=== PATIENT | female | born 1995 | race Hispanic/Latino ===

== ENCOUNTER 2016-04-21 19:00 | Emergency (ER) | payer OTHER ==
[~2016-04-21] VITALS: Ht 157.5 cm; Wt 59.5 kg
[~2016-04-21 19:00] MED LIST: FERR-83 PO; IBUP800T28 PO
[2016-04-21 19:07] VITALS: BP 136/84; PULSE 103; RESP 16; O2SAT 96
--- NOTE | 2016-04-21 20:32 | ED.REPORT ---
HPI-Dental/Mouth Prob Date of Service Apr 21, 2016 ED Provider: Martha Swanson Nursing Notes Stated Complaint: R SIDED DENTAL/FACIAL PAIN Chief Complaint: Dental Nursing Notes Reviewed: Yes Allergies: Coded Allergies: No Known Allergies (Unverified , 04/21/16) Scheduled Penicillin V Potassium (Penicillin V Potassium) 500 Mg Tablet 500 MG PO BID Scheduled PRN Hydrocodone-Acetaminophen 5-325 mg (Hydrocodone-Acetaminophen 5-325 mg) 1 Each Tablet 1 TABLET PO Q4H PRN PRN For Pain General Time Seen by MD: 20:13 Chief Complaint Gum swelling, Mouth pain Hx Obtained From: Patient Arrived By: Walk-in Onset Occurred: Yesterday Symptom Duration: Since onset Location: : Gum mandible right: Tooth lower R molar Quality: Aching Radiation: : Does not radiate Severity: Current: Mild Severity: Maximum: Moderate Associated with: Denies: Can't fully open mouth, Fever, Sore throat Pertinent Negative: Pt denies other symptoms Exacerbated by: Chewing Pertinent Negative: Relieved by nothing Recent Healthcare: No recent doctor visit Similar Sx Previous: No Review of Systems Basic Review of Systems Eyes: Vision NL, No discharge Cardiovascular: No chest pain, No dyspnea on exertion, No palpitations : No frequency Musculoskeletal: No extremity pain, Full range of motion, Joints NL Hematologic: No bleeding, No bruising Endocrine: No cold intolerance, No heat intolerance, No weight gain, No weight loss Skin: No bruising, No rash, No itch Allergy / Immune: No allergy Neurologic: NL mental status, No weakness, No numbness Psychiatric: Normal thought content Constitutional: Denies: Fatigue, Fever Ears / Nose / Throat: Reports: Mouth pain, Toothache, Denies: Earache bilateral, Throat pain Respiratory: Denies: Dyspnea on exertion GI: Denies: Abdominal pain Complete sys rev & neg: except as marked. Physical Exam Initial Vital Signs Vital Signs (First) Date Time Temp Pulse Resp B/P Pulse Ox O2 Delivery O2 Flow Rate FiO2 04/21/16 19:07 36.8 103 16 136/84 96 Room Air Initial VS: Reviewed General/Constitutional: Well-developed, Well-nourished Head / Eyes: Atraumatic, Normocephalic, PERRL Respiratory: No respiratory distress Abdomen / GI: No distention Lymphatic: No lymphadenopathy Extremities: Vascular intact, Neuro intact, No swelling, No tenderness Skin: Warm, Dry, No cyanosis Neurologic: Alert, Oriented, Nonfocal Psychiatric: Mood/affect normal, Behavior normal, Normal thought content ENT: Atraumatic, Airway patent, Mucous membranes moist, No trismus, Nose exam NL, No facial swelling Dental / Gums: Positive: Dental caries present, Gum tenderness, Tooth fracture (lower right first molar with extensive decay, no gum swelling), Negative: Dental abscess, Gum discoloration, Gum swelling Neck: Atraumatic, Supple, No meningismus Discharge & Departure Primary Impression: Dental abscess Additional Impression: Toothache Disposition: Home Discharge Condition Condition: Improved Patient Instructions: Dental Abscess (ED) Additional Instructions: Take your medications as prescribed. You should start to feel better in the next 3 to 5 days. It is important to find a dentist to work on your teeth or the abscess will come back. Please call all of the places on the resource sheet and see who can see you in the next 2 weeks. Return to Urgent Care or the ER if you feel that you are getting worse or any other problems. Referrals: NOPCP (PCP) EDSupervising Provider for APC: Mikel Valdez MD, Lora L ARNP Apr 21, 2016 20:32
[2016-04-21] MEDS ORDERED: HYDR-4003 PO (20:34)
[2016-04-21] MEDS ORDERED: PENI500T PO (20:34)
[2016-04-21] MEDS ORDERED: HYDROcodone-APAP 5-325 mg Tablet PO ONE (20:35)
== END 2016-04-21 21:01 | disposition home or self-care (01) ==
LOC: MERGE 19:00 → SED 19:00
DX: K04.7 Periapical abscess without sinus (principal)

== ENCOUNTER 2016-06-26 20:46 | Emergency (ER) | payer OTHER ==
[~2016-06-26] VITALS: Ht 154.9 cm; Wt 91.8 kg
[~2016-06-26 20:46] MED LIST changes: +HYDR-4003 PO; +PENI500T PO
[2016-06-26 20:50] VITALS: BP 144/82; PULSE 92; RESP 16; O2SAT 98
[2016-06-26 21:42] LABS: Mean Corpuscular Hemoglobin 27.6 pg (27.0-35.0); Mean Corpuscular Volume 87.6 fL (81-100)
--- NOTE | 2016-06-26 22:08 | ED.REPORT ---
HPI- Female Date of Service Jun 26, 2016 ED Provider: Laurent See MD 21 year old female who is currently presents to the ER referred from urgent care accompanied by her and children complaining of three days of cramping low abdominal pain and mild vaginal bleeding. Patient denies fever, dysuria, vaginal discharge, urinary urgency/frequency, nausea, and vomiting. Positive test at urgent care. Last menstrual period was at the end of May 2016. Nursing Notes Stated Complaint: AND BLEEDING SENT FROM Chief Complaint: Female Abdominal Pain Nursing Notes Reviewed: Yes Allergies: Coded Allergies: No Known Allergies (Verified Allergy, Unknown, 06/26/16) Scheduled Ferrous Sulfate (Ferrous Sulfate) 325 Mg Tablet 325 MG PO DAILY Penicillin V Potassium (Penicillin V Potassium) 500 Mg Tablet 500 MG PO BID Scheduled PRN Hydrocodone-Acetaminophen 5-325 mg (Hydrocodone-Acetaminophen 5-325 mg) 1 Each Tablet 1 TABLET PO Q4H PRN PRN For Pain Ibuprofen (Ibuprofen) 800 Mg Tablet 800 MG PO Q6H PRN PRN For Pain General Time Seen by MD: 22:07 Chief Complaint Abdominal pain..., Vaginal bleeding... (Moderate) Hx Obtained From: Patient Arrived By: Walk-in Sudden in Onset?: No Onset Occurred: 3 days ago Symptom Duration: Since onset Location: : Abdomen lower Quality: Cramping, Painful Severity: Current: Moderate Severity: Maximum: Moderate Status: Positive - home urine HCG : 3 Para: 2 Similar Sx Previous: No Past Medical History Past Medical History pre-eclampsia with first Past Surgical History none Smoking History Smoker Current Status UNK Social History Drug Use: Denies drug use Other Social History: Good social support, Ambulatory Status Independent Review of Systems Constitutional: Denies: Chills, Fever GI: Reports: Abdominal pain, Denies: Nausea, Vomiting Female: Reports: , Vaginal bleeding - abnl, Denies: Dysuria, Hematuria, Urinary frequency, Urinary urgency, Vaginal discharge Complete sys rev & neg: except as marked. Physical Exam Initial Vital Signs Vital Signs (First) Date Time Temp Pulse Resp B/P Pulse Ox O2 Delivery O2 Flow Rate FiO2 06/26/16 20:50 36.2 92 16 144/82 98 Room Air Initial VS: Reviewed General/Constitutional: Well-developed, Well-nourished Head / Eyes: Atraumatic, Normocephalic ENT: Mucous membranes moist, Conjunctiva normal, No scleral icterus Neck: Supple, Non-tender, Full range of motion Respiratory: Breath sounds normal, Clear to auscultation, No respiratory distress Cardiovascular: Regular rate & rhythm, Heart sounds normal, Intact distal pulses Abdomen / GI: Soft, Non-tender, No guarding, No rebound, No distention Extremities: Vascular intact, Neuro intact, No swelling, No tenderness Skin: Warm, Dry, No cyanosis Neurologic: Alert, Oriented, Nonfocal Psychiatric: Mood/affect normal, Behavior normal, Normal thought content Female Genitourinary: Exam deferred Interpretation & Diagnostics Lab Results Interpretation Result Diagram: 06/26/162126 Test 06/26/16 21:27 White Blood Count 11.4th/mm3 (3.8-10.1) Red Blood Count 4.27mil/mm3 (3.90-5.20) Hemoglobin 11.8g/dL (12.0-15.6) Hematocrit 37.4% (35.0-46.0) Mean Corpuscular Volume 87.6fL (81-100) Mean Corpuscular Hemoglobin 27.6pg (27.0-35.0) Mean Corpuscular Hemoglobin Concent 31.6% (32.0-37.0) Red Cell Distribution Width 14.6% (12.3-15.4) Platelet Count 318bil/L (150-400) HCG Beta Subunit 62.08mIU/mL Hold Jean-Baptiste Top Tube Received (Received) Re-Eval/Medical Decision Med Decision/Clinical Course 21-year-old presents just two weeks after her last period with some cramping and spotty bleeding, and a positive urine . She has an hCG of sixty-two, consistent with a very early . This is of insufficient size to visualize with ultrasound. Also of insufficient size to cause an ectopic rupture at this point. Provided with a lab slip for repeat hCG in two days, and plan for follow-up with Anupama Britton in the office. Prompt return if heavy bleeding or other new symptoms develop. Source of Hx: Old records Re-Evaluation/Progress : Time of Eval: 22:22 Re-Evaluation/Progress Note: Discussed plan to discharge pending UA results and need for close follow-up. Patient is amenable to the plan. Return precautions given. All other questions addressed. Counseled Regarding: Diagnosis, Lab results, Need for follow-up, When/why to return to ED Discharge & Departure Impression: Primary Impression: Vaginal bleeding in Disposition: Home Discharge Condition All VS Reviewed: Yes Condition: Stable Additional Instructions: Call Dr. Anupama Britton tomorrow morning to arrange an appointment. Return to the ER if you develop heavy bleeding, worsening abdominal pain, or any other concerning symptoms.Your hCG is very low. (63) at that level, it is not possible to visualize the fetus or yolk sac by ultrasound. It is necessary to trend this number and see if it is rising. A small amount of bleeding in early is fairly common, and not necessarily an indication of a miscarriage. It is also too early and two small to cause symptoms of an ectopic at this point. Call Dr. Anupama Britton tomorrow morning to arrange an appointment. On Friday morning, bring a lab slip to the lab here and have a repeat hCG drawn. This result will also go to Dr. Britton. Your urine shows no evidence of infection. Tylenol or Motrin are fine for crampy abdominal pain, even in . Return to the ER if you develop heavy bleeding, worsening abdominal pain, or any other concerning symptoms. Referrals: Anupama Britton MD (PCP) Scribe Attestation Portions of this note were transcribed by Tip Loza. I, Dr. See, personally performed the history, physical exam and medical decision-making; I reviewed and confirmed the accuracy of the information in the transcribed note. Signed by: Kendra Snyder. 06/26/2016 - 22:37 copies to: Anupama Britton MD, Christopher W MD Jun 26, 2016 22:08 TIP LOZA Jun 26, 2016 22:15 Thierry Jorge Jun 26, 2016 22:33
[2016-06-26 22:46] VITALS: BP 129/80; PULSE 92; RESP 16; O2SAT 98
== END 2016-06-26 22:47 | disposition home or self-care (01) ==
LOC: SED 20:46
DX: O20.8 Other hemorrhage in early pregnancy (principal); R10.30 Lower abdominal pain, unspecified; Z3A.00 Weeks of gestation of pregnancy not specified

== ENCOUNTER 2016-06-29 21:01 | Observation (INO) | payer OTHER ==
[~2016-06-29] VITALS: Ht 154.9 cm; Wt 94.6 kg
[2016-06-29 21:04] VITALS: BP 145/81; PULSE 94; RESP 16; O2SAT 100
[2016-06-29] MEDS ORDERED: 0.9% Sodium Chloride 1,000 ML IV ONE (22:01)
--- NOTE | 2016-06-29 22:05 | ED.REPORT ---
HPI-General Illness Date of Service Jun 29, 2016 ED Provider: Jose Martin Magana MD Patient is a 21 year old female at approximately three weeks with a history of pre-eclampsia who presents to the ED with vaginal bleeding onset five days ago. The discharge was originally spotted pink and brown but worsened to red blood today. The patient also reports lower abdominal cramping. She denies fever, dysuria, urinary frequency, or other symptoms. Her first WATCH ELECTRICIAN appointment is scheduled for early next week. Nursing Notes Stated Complaint: & BLEEDING Chief Complaint: & Delivery Nursing Notes Reviewed: Yes Allergies: Coded Allergies: No Known Allergies (Verified Allergy, Unknown, 06/29/16) No Active Prescriptions or Reported Meds General Time Seen by MD: 21:59 Chief Complaint Other (Vaginal Bleeding) Hx Obtained From: Patient Arrived By: Walk-in Onset Occurred: 5 days ago Symptom Duration: Since onset Location: : Abdomen Quality: Cramping, Painful Severity: Current: Moderate Severity: Maximum: Moderate Pertinent Negative: Relieved by nothing Recent Healthcare: No recent doctor visit Similar Sx Previous: Yes Past Medical History Past Medical History Pre-eclampsia with first Past Surgical History None Smoking History Smoker Current Status UNK Social History Drug Use: Denies drug use Other Social History: Good social support, , Lives with children Ambulatory Status Independent Review of Systems Full Review of Systems Constitutional: Denies: Fever Respiratory: Denies: Non-productive cough GI: Reports: Abdominal pain (Lower), Denies: Diarrhea, Vomiting Female: Reports: Vaginal bleeding - abnl (In ), Denies: Dysuria, Urinary frequency Complete sys rev & neg: except as marked. Physical Exam Vital Signs Vital Signs Date Time Temp Pulse Resp B/P Pulse Ox O2 Delivery O2 Flow Rate FiO2 06/29/16 21:04 36.7 94 16 145/81 100 Room Air Initial VS: Reviewed Neck: Supple, Full range of motion Extremities: Vascular intact (Well-perfused), Neuro intact Skin: Warm, Dry, No cyanosis Neurologic: Alert, Oriented, Nonfocal Psychiatric: Mood/affect normal, Behavior normal, Normal thought content General/Constitutional: Awake, Alert, No acute distress Head / Eyes: Atraumatic, Normocephalic ENT: Airway patent, Mucous membranes moist Respiratory / Chest: Breath sounds NL, Breath sounds = bilat, No respiratory distress Cardiovascular: Heart rate NL, Regular rhythm, Heart sounds NL, No gallop, No murmurs, No rubs Abdomen: Soft, Non-tender, No distention Back: Inspection NL, No CVA tenderness Female Genitourinary: Mechanical Process Engineer present, Atraumatic, External genitalia NL, No discharge, Os closed Vaginal Bleeding / Discharge: Positive: Bleeding moderate (Dark red blood present in vaginal vault) Bright red blood at cervix Interpretation & Diagnostics URINE DIPSTICK: Bedside Urine Specific [place] * 1.015 Bedside Urine pH * 5 Bedside Urine Leukocyte Esterase * + Bedside Urine Nitrite * Negative Bedside Urine Protein * + (30) Bedside Urine Glucose * Normal Bedside Urine Ketones * Negative Bedside Urine Urobilinogen * Normal Bedside Urine Bilirubin * Negative Bedside Urine Occult Blood * ~ 250 Juancho/ml Urine to Lab * Yes Lab Results Interpretation Result Diagram: 06/29/16212406/29/162124 Test 06/29/16 21:25 06/29/16 21:30 06/29/16 23:00 White Blood Count 11.3th/mm3 (3.8-10.1) Red Blood Count 4.40mil/mm3 (3.90-5.20) Hemoglobin 12.1g/dL (12.0-15.6) Hematocrit 38.2% (35.0-46.0) Mean Corpuscular Volume 86.8fL (81-100) Mean Corpuscular Hemoglobin 27.5pg (27.0-35.0) Mean Corpuscular Hemoglobin Concent 31.7% (32.0-37.0) Red Cell Distribution Width 14.7% (12.3-15.4) Platelet Count 344bil/L (150-400) Hold Purple Top Tube Received (Received) Hold Blue Top Tube Received (Received) Sodium Level 137mEq/L (134-144) Potassium Level 4.4mEq/L (3.5-5.2) Chloride Level 99mEq/L (97-108) Carbon Dioxide Level 21mmol/L (18-29) Blood Urea Nitrogen 13mg/dL (6-20) Creatinine 0.73mg/dL (0.57-1.00) Estimat Glomerular Filtration Rate 142mL/min (>59) Glucose Level 133mg/dL (60-99) Calcium Level 9.5mg/dL (8.5-10.1) Total Bilirubin 0.3mg/dL (0.0-1.2) Aspartate Amino Transf (AST/SGOT) 22U/L (0-50) Alanine Aminotransferase (ALT/SGPT) 9U/L (0-32) Alkaline Phosphatase 122U/L (25-150) Total Protein 8.4g/dL (6.4-8.4) Albumin 4.8g/dL (3.4-5.0) HCG Beta Subunit 12.98mIU/mL Hold Red Top Tube Received (Received) Hold Mercer Top Tube Received (Received) Hold Jean-Baptiste Top Tube Received (Received) Hold Urine Received (Received) Urine Color Yellow (YELLOW) Urine Appearance Clear (CLEAR,HAZY) Urine pH 7.0 (5.0-8.0) Urine Specific [place] 1.015 (1.003-1.035) Urine Protein Negativemg/dL (NEG,TRACE) Urine Glucose (UA) Negativemg/dL (NEGATIVE) Urine Ketones Tracemg/dL (NEGATIVE) Urine Occult Blood Moderate (NEGATIVE) Urine Nitrite Negative (NEGATIVE) Urine Bilirubin Negative (NEGATIVE) Urine Urobilinogen Normalmg/dL (NORMAL) Urine Leukocyte Esterase Negative (NEGATIVE) Urine RBC 3-10/hpf (0-2) Urine WBC 0-5/hpf (0-5) Urine Epithelial Cells Few/hpf (NONE-MOD) Urine Crystals None seen (NONE SEEN) Urine Bacteria None/hpf (NONE-FEW) Urine Hyaline Casts None/lpf (NONE) Urine Granular Casts None seen (NONE SEEN) Urine Waxy Casts None seen (NONE SEEN) Urine Red Blood Cell Casts None seen (NONE SEEN) Urine White Blood Cell Casts None seen (NONE SEEN) Urine Mucus None seen (None Seen) Urine Trichomonas None seen (NONE SEEN) Urine Yeast None (NONE SEEN) Urine Culture Reflexed Not indicated Re-Eval/Medical Decision Med Decision/Clinical Course Patient is a 21 year old female at approximately three weeks with a history of pre-eclampsia who presents to the ED with vaginal bleeding onset five days ago. The discharge was originally spotted pink and brown but worsened to red blood today. The patient also reports lower abdominal cramping. She denies fever, dysuria, urinary frequency, or other symptoms. Her first [facility] appointment is scheduled for early next week. Upon arrival the patient is afebrile, hemodynamically stable and in no significant distress. She has no significant abdominal tenderness and pelvic examination reveals a closed cervix with bright red blood in the vaginal vault. LABS: CBC leukocytosis 11.3 Stable hematocrit CMP unremarkable HCG 12.98 Urinalysis unremarkable Transvaginal ultrasound demonstrated "hypoechoic/complex fluid collection about the right adnexa consistent with ectopic ". Patient was made nothing by mouth, placed on maintenance fluids and blood was sent for type and screen. Patient was discussed with [facility] ELECT[facility]IC[facility] doctor Lucrecia who agreed to admit the patient for observation and expectant management. At this time given low hCG level and patient's hemodynamic stability with a relatively benign abdominal examination he does not feel that any emergent operative intervention is required. Patient was updated as to the plan and admitted in stable condition. Source of Hx: Old records Time of Eval: 22:57 Patient Status: Condition improved Re-Evaluation/Progress Note: Pelvic exam performed. Time of Eval: 00:08 Patient Status: Condition improved Re-Evaluation/Progress Note: Discussed with patient US and lab results, diagnosis, and plan for admit. Patient agrees with plan for care and all questions were addressed. Consultation : Referral / Consult Name: Anderson Condon MD Call Returned at: 00:00 Instrumentation Supervisor: Will see patient, Agrees with eval, Agrees with plan, Accepts admit Note: W[facility] ELECTRICIAN: Discussed patient's case Counseled Regarding: Diagnosis, Lab results, Need for admission Discharge & Departure Primary Impression: Ectopic Location of ectopic : tubal Intrauterine status: without intrauterine Qualified Code: O00.10 - Tubal without intrauterine Additional Impressions: Vaginal bleeding in Trimester: first trimester Qualified Code: O46.91 - Antepartum hemorrhage, unspecified, first trimester Lower abdominal pain Disposition: ADMITTED TO HOSPITAL Discharge Condition All VS Reviewed: Yes Condition: Improved Referrals: Anupama Britton MD (PCP) Kendra Attestation Portions of this note were transcribed by June Paredes. I, Dr. Magana, personally performed the history, physical exam, and medical decision-making; I reviewed and confirmed the accuracy of the information in the transcribed note. Signed by: Kendra Jones, 06/30/2016, 00:20 copies to: Anupama Britton MD, Beck O MD Jun 29, 2016 22:05 JUNE PAREDES Jun 29, 2016 22:33
[2016-06-29 22:37] LABS: Mean Corpuscular Hemoglobin 27.5 pg (27.0-35.0); Mean Corpuscular Volume 86.8 fL (81-100)
[2016-06-29 23:03] LABS: APPEARANCE,URINE HAZY (CLEAR,HAZY); COLOR,URINE RED (YELLOW); OCCULT BLOOD,URINE LARGE (NEGATIVE); UROBILINOGEN,URINE NORMAL (NORMAL)
[2016-06-29 23:30] LABS: APPEARANCE,URINE CLEAR (CLEAR,HAZY); COLOR,URINE YELLOW (YELLOW); OCCULT BLOOD,URINE MODERATE (NEGATIVE); UROBILINOGEN,URINE NORMAL (NORMAL)
[2016-06-30] MEDS ORDERED: Alum-Mag Hydrox-Simeth 30 mL Suspension PO PRN (00:05)
[2016-06-30] MEDS ORDERED: Ondansetron 2 mg/mL 2 mL Inj IVPUSH PRN (00:05)
[2016-06-30 00:42] VITALS: BP 105/64; PULSE 109; RESP 20; O2SAT 96
[2016-06-30 00:48] VITALS: BP 105/64; PULSE 109; RESP 20; O2SAT 96
[2016-06-30 01:40] VITALS: BP 129/80; PULSE 84; RESP 16; O2SAT 96
--- NOTE | 2016-06-30 02:08 | NUR ---
Admit to [facility] received phone report from ED at 0045, pt arrived to floor at 0103 accompanied by residential air sealing technician and spouse, pt a/o able to ambulate to bed from gurney, denies pain, reports intermittent abdominal cramps, oriented pt to floor and call light system, noted 20G IV SL on LAC, patent, pt so far has not had any vaginal spotting/bleed at this time, instructed pt on alejandro-pad use to monitor for any discharge, instructed pt on NPO status, call light in reach.
[2016-06-30 06:27] VITALS: BP 100/94; PULSE 80; RESP 16; O2SAT 100
[2016-06-30 08:00] VITALS: BP 117/75; PULSE 88; RESP 16; O2SAT 99
--- NOTE | 2016-06-30 08:52 | DRSVH ---
PROCEDURE: US PELVIC SONOGRAM + TRANSVAGINAL SONOGRAM INDICATIONS: , vag bleed TECHNIQUE: Real-time scanning was performed of the pelvic organs, with image documentation. Additional endovagi nal scanning was necessary due to incomplete visualization of the adnexal and endometrial structures by transabdominal scanning. COMPARISON: None. FINDINGS: Transabdominal scanning: Limited scanning through the kidneys shows no hydronephrosis. No pathologi c free abdominal or pelvic fluid. Endovaginal scanning: Uterus: Uterus is normal in size at 7.7 x 6.9 x 4.8 cm. The endometrium measures 8.2 mm in combined thickness. Complex fluid noted in the lower uterine segment. Ovaries: Right adnexa measures 2.6 x 2.9 x 2.6 cm. Left adnexa measures 2.6 x 1.7 x 2.1 cm. There is a 3.2 x 2.4 x 3.1 cm mass with internal vascularity superior to the right ovary. IMPRESSION: No definite intrauterine identified with a right adnexal mass. Differential d iagnosis includes early versus ectopic . Recommend correlation with serial beta-hC G, follow up ultrasound and close clinical observation. Dictated by: Michelle Moore MD, PhD on 06/30/2016 at 8:47 Approved by: Michelle Moore MD, PhD on 06/30/2016 at 8:51
[2016-06-30] MEDS ORDERED: IBUP800T28 PO (10:18)
--- NOTE | 2016-06-30 10:18 | PCM.DIGYN ---
Surgical Discharge Instruction Dates of Hospitalization Date of Hospital Admission Jun 30, 2016 at 00:43 Providers Admitting Physician: Anderson Condon MD Primary Care Physician: Anupama Britton MD Attending Physician: Anderson Condon MD Diagnosis at Time of Discharge Diagnosis at time of discharge Incomplete Problems: Diet Discharge Diet: No restrictions Activity Discharge Activity-General: Activity as pain allows Dressing and Incisional Care Hygiene: May shower, NO bathtub, hot tub or whirlpool Additional Instructions Discharge Instructions Please call with severe pain, dizziness, chest pain, shortness of breath, heavy bleeding filling more than a pad per hour Follow Up Plan Follow Up Plan Dr. Anupama Britton Follow-up appointment: Days (1) Call your provider for: Fever, Chills, Shortness of breath, Heavy vaginal bleeding Linh Sanz MD Jun 30, 2016 10:18
--- NOTE | 2016-06-30 10:48 | HP ---
[address] [address] HISTORY AND PHYSICAL PATIENT: LORE SHERMAN : 1995 MR#: [id number] ADMIT: 06/30/2016 JOB ID: [id number] HISTORY OF PRESENT ILLNESS: The patient is a 21-year-old, 3, para 2, whose last menstrual period was at the end of May 2016, was light, she does not remember exact dates. The menstrual periods were irregular. Home test was positive. The patient had scheduled first a LAB TECH appointment in [facility] early next week. She presented to the emergency department with complaint of lower abdominal pain, cramps, and episodes of bleeding for 5 days. There is no fever, no dysuria, and no urinary urgency or frequency. No other symptoms. The pain she describes mostly as abdominal cramps, maximum intensity 3-4/10. The patient is hemodynamically stable. LABORATORIES: WBC count 11.3, hemoglobin 12.1, hematocrit 38.2, platelets 344. Basic metabolic panel came back normal. Urinalysis is negative. The ER ultrasound was performed and the report showed hyperechoic complex fluid collection above the right adnexa consistent with ectopic . PHYSICAL EXAMINATION: Vital signs: Blood pressure 111/75, pulse 88, temperature 36.6, respiratory rate 16. Chest: Clear bilaterally. No adventitious sounds. Cardiovascular system regular rate and rhythm. Abdomen is mildly tender in the lower abdomen on both quadrants. There is no rebound, no rigidity. Pelvic exam there is vaginal spotting, mild cervical motion tenderness. Beta quantitative ECG is 12. ASSESSMENT AND PLAN: A 21-year-old, 3, para 2 presents with lower abdominal cramps, no significant abdominal tenderness. Pelvic exam demonstrates closed cervix with some bleeding, patient is hemodynamically stable. Abdomen is benign, no rebound and no rigidity. Ultrasound came back suspicious for ectopic . Based on the physical exam and the patient's symptoms and history it is very doubtful that she has an ectopic, however, because of ultrasound report the patient is being admitted for observation for the night. Repeat labs elevated, quantitative beta hCG will be obtained. Pain management is provided.
--- NOTE | 2016-06-30 10:55 | DIS ---
[address] [address] DISCHARGE SUMMARY PATIENT: LORE SHERMAN : 1995 MR#: [id number] ADMIT: 06/30/2016 JOB ID: [id number] DIS: 06/30/2016 CORRECTED REPORT: DATE: 06/30/2016 ADMISSION DIAGNOSIS: Questionable possible ectopic . DISCHARGE DIAGNOSIS: Suspected incomplete . PROCEDURES PERFORMED: None. REASON FOR ADMISSION: This is a 21-year-old, 0-0-2 female who presented to the emergency department at approximately 3 weeks gestational age with intermittent vaginal bleeding off and on for the last 5 days with lower abdominal cramping. The patient had been following with Dr. Anupama Britton per her report she had an early quant hCG that returned at 63 in her clinic. She was supposed to follow up with Dr. Britton tomorrow, Friday the . However due to the bleeding and lower abdominal cramping she presented to the emergency department. Please see the history and physical completed by Dr. Anderson Condon on the for details. After the patient presented to the emergency department, her vital signs were evaluated and were noted to be stable and her laboratory data was stable as well with a hemoglobin of 12.1. A transvaginal ultrasound was completed which showed a normal sized uterus with complex fluid located in the lower uterine segment and a 3.2 x 2.4 x 3.1 cm mass with internal vascularity superior to the right ovary. As there was no definitive intrauterine identified as well as a right adnexal mass she was admitted for a possible ectopic . Quant hCG that was collected in the emergency department returned at 12. HOSPITAL COURSE: The patient was admitted for observation. Her vital signs were stable and her hemoglobin was stable. On the morning of the she was examined by Dr. Anderson Condon who noted no abdominal pain and nontender abdomen with a decrease in vaginal bleeding. As she was deemed stable and her ultrasound imaging was reviewed and not thought to be a definitive ectopic especially with such a low and apparently dropping quant at this point in time she was deemed stable for discharge. INSTRUCTIONS AT DISCHARGE: The patient was advised to return to the emergency department for worsening abdominal pain, dizziness, chest pain, shortness of breath, or heavy vaginal bleeding filling more than a pad per hour. Most likely given her clinic hCG of 63 with an emergency department hCG dropped down to 12 this is likely a failing early intrauterine . However, her quant should be followed down to zero to confirm this. It is unlikely with a quant hCG that far below the discriminatory zone that the finding on ultrasound would be anything other than a ovarian cyst. As she was clinically stable she was discharged home on hospital day #2 and asked to follow up with Dr. Britton tomorrow at her appointment for repeat quant hCG and followup in outpatient clinic. She was given ibuprofen 800 mg p.o. t.i.d. as needed for pain. All questions and concerns of the patient were answered. She was deemed stable for discharge on hospital day #2. Blood type was RH+ Corrected by DENITA 07/04/16 at 7:02am Report type.
--- NOTE | 2016-06-30 11:12 | NUR ---
Discharge Patient discharged home with family via private vehicle. Discharge instructions, follow up and prescription discussed with patient. all belongings sent with patient.
--- NOTE | 2016-06-30 11:29 | NUR ---
Social Work Note: Screen Note/Discharge Data& Assessment: EMR reviewed. Per pt is medically ready for discharge. Dudley Gomez is a 21 year old female under observation for ectopic beginning this morning. Pt has [employer] insurance coverage and sees Lavon Britton MD for primary care. Pt lives in [place] with her spouse and is independent at baseline. Per RN in morning rounds, pt is likely to have an ovarian cyst and per pt is medically improved and ready for discharge. Plan: Per pt is medically ready to discharge home via POV. No discharge needs identified. All updated and agreeable to plan. SEVERO Croft
== END 2016-06-30 11:10 | disposition home or self-care (01) ==
LOC: SED 21:01 → MOC 06-30 00:43 → INTOOBSV 06-30 00:43
PROVIDERS: ADMIT Legal Medicine; ATTEND Legal Medicine
DX: O46.91 Antepartum hemorrhage, unspecified, first trimester (principal); Z3A.01 Less than 8 weeks gestation of pregnancy
CPT/HCPCS: 36415; 76830; 76856; 80053; 81000; 84702; 85027; 86850; 87086; 87088; 96360; 99285; J7030

== ENCOUNTER 2016-09-22 18:47 | Emergency (ER) | payer OTHER ==
[~2016-09-22] VITALS: Ht 157.5 cm; Wt 81.8 kg
[~2016-09-22 18:47] MED LIST changes: -FERR-83 PO; -HYDR-4003 PO; -PENI500T PO
[2016-09-22 19:01] VITALS: BP 134/80; PULSE 81; RESP 16; O2SAT 98
[2016-09-22 19:40] LABS: BASOPHILS % (AUTO) 0.8 % (0-3); MONOCYTES % (AUTO) 7.2 % (4-12); Mean Corpuscular Hemoglobin 27.2 pg (27.0-35.0); NEUTROPHILS % (AUTO) 58.6 % (40-74); Platelet Count 272 bil/L (150-400)
[2016-09-22 20:29] LABS: APPEARANCE,URINE CLEAR (CLEAR,HAZY); COLOR,URINE YELLOW (YELLOW); OCCULT BLOOD,URINE TRACE (NEGATIVE); PH,URINE 5.5 (5.0-8.0); UROBILINOGEN,URINE NORMAL (NORMAL)
--- NOTE | 2016-09-22 21:10 | ED.REPORT ---
HPI-Preg Under 20 Weeks Date of Service Sep 22, 2016 ED Provider: Gio Bo MD The pt is a 21 y/o female w/ a hx of an ectopic presenting to the ED complaining of intermittent RLQ pain onset a week ago. She reports taking a home test which was found to be positive. The pt had a miscarriage 2 months ago and is concerned for this . Denies hematuria or vaginal discharge. Nursing Notes Stated Complaint: ABDOMINAL CRAMPING, POSSIBLY Chief Complaint: General Complaint Nursing Notes Reviewed: Yes Allergies: Coded Allergies: No Known Allergies (Verified Allergy, Unknown, 06/29/16) Scheduled PRN Ibuprofen (Ibuprofen) 800 Mg Tablet 800 MG PO TID PRN PRN For Pain General Time Seen by Provider: 21:12 Chief Complaint Abdominal pain (RLQ) Hx Obtained From: Patient Arrived By: Walk-in Onset Occurred: 1 week ago Symptom Duration: Intermittent Recent Healthcare: No recent hospitalization, Recent doctor visit Past Medical History Past Medical History Pre-eclampsia with first Ectopic Past Surgical History None Smoking History Smoker Current Status UNK Social History Drug Use: Denies drug use Other Social History: Good social support, , Lives with children Ambulatory Status Independent Review of Systems GI: Reports: Abdominal pain (RLQ) Female: Denies: Hematuria, Vaginal discharge Complete sys rev & neg: except as marked. Physical Exam Initial Vital Signs Vital Signs (First) Date Time Temp Pulse Resp B/P Pulse Ox O2 Delivery O2 Flow Rate FiO2 09/22/16 19:01 36.6 81 16 134/80 98 Room Air Initial VS: Reviewed, Vital signs normal Head / Eyes: Atraumatic, Normocephalic, PERRL ENT: Mucous membranes moist, Conjunctiva normal, No scleral icterus Neck: Supple, Non-tender, Full range of motion Respiratory: Breath sounds normal, Clear to auscultation, No respiratory distress Cardiovascular: Regular rate & rhythm, Heart sounds normal, Intact distal pulses Extremities: Vascular intact, Neuro intact, No swelling, No tenderness Skin: Warm, Dry, No cyanosis Neurologic: Alert, Oriented, Nonfocal Psychiatric: Mood/affect normal, Behavior normal, Normal thought content General/Constitutional: Awake, Alert Appearance / Presentation: Positive: Obese Abdomen: Soft Bilat lower quadrant tenderness Female Genitourinary: Exam deferred : Exam deferred Interpretation & Diagnostics Lab Results Interpretation Result Diagram: 09/22/16193509/22/161935 Test 09/22/16 19:36 09/22/16 19:37 09/22/16 20:00 09/22/16 20:05 White Blood Count 9.1th/mm3 (3.8-10.1) Red Blood Count 4.70mil/mm3 (3.90-5.20) Hemoglobin 12.8g/dL (12.0-15.6) Hematocrit 39.0% (35.0-46.0) Mean Corpuscular Volume 83.0fL (81-100) Mean Corpuscular Hemoglobin 27.2pg (27.0-35.0) Mean Corpuscular Hemoglobin Concent 32.8% (32.0-37.0) Red Cell Distribution Width 15.2% (12.3-15.4) Platelet Count 272bil/L (150-400) Neutrophils (%) (Auto) 58.6% (40-74) Lymphocytes (%) (Auto) 31.2% (14-46) Monocytes (%) (Auto) 7.2% (4-12) Eosinophils (%) (Auto) 2.0% (0-5) Basophils (%) (Auto) 0.8% (0-3) Sodium Level 137mEq/L (134-144) Potassium Level 3.9mEq/L (3.5-5.2) Chloride Level 103mEq/L (97-108) Carbon Dioxide Level 21mmol/L (18-29) Blood Urea Nitrogen 12mg/dL (6-20) Creatinine 0.53mg/dL (0.57-1.00) Estimat Glomerular Filtration Rate 205mL/min (>59) Glucose Level 93mg/dL (60-99) Calcium Level 9.5mg/dL (8.5-10.1) Total Bilirubin 0.2mg/dL (0.0-1.2) Aspartate Amino Transf (AST/SGOT) 16U/L (0-50) Alanine Aminotransferase (ALT/SGPT) 19U/L (0-32) Alkaline Phosphatase 114U/L (25-150) Total Protein 8.1g/dL (6.4-8.4) Albumin 4.2g/dL (3.4-5.0) Hold Jean-Baptiste Top Tube Received (Received) Urine Color Yellow (YELLOW) Urine Appearance Clear (CLEAR,HAZY) Urine pH 5.5 (5.0-8.0) Urine Specific Murray 1.030 (1.003-1.035) Urine Protein Negativemg/dL (NEG,TRACE) Urine Glucose (UA) Negativemg/dL (NEGATIVE) Urine Ketones Negativemg/dL (NEGATIVE) Urine Occult Blood Trace (NEGATIVE) Urine Nitrite Negative (NEGATIVE) Urine Bilirubin Negative (NEGATIVE) Urine Urobilinogen Normalmg/dL (NORMAL) Urine Leukocyte Esterase Negative (NEGATIVE) Urine RBC 0-2/hpf (0-2) Urine WBC 0-5/hpf (0-5) Urine Epithelial Cells Few/hpf (NONE-MOD) Urine Crystals None seen (NONE SEEN) Urine Bacteria Few/hpf (NONE-FEW) Urine Hyaline Casts None/lpf (NONE) Urine Granular Casts None seen (NONE SEEN) Urine Waxy Casts None seen (NONE SEEN) Urine Red Blood Cell Casts None seen (NONE SEEN) Urine White Blood Cell Casts None seen (NONE SEEN) Urine Mucus None seen (None Seen) Urine Trichomonas None seen (NONE SEEN) Urine Yeast None (NONE SEEN) Urinalysis Comment None Urine Culture Reflexed Not indicated HCG Beta Subunit 324.7mIU/mL Lab values outside NL range: no clinical significance. Lab Results Interpretation: Beta hCG 325 Re-Eval/Medical Decision Med Decision/Clinical Course 21-year-old female with a positive home test presents with right lower abdominal pain. Beta hCG 325. Remaining labs vital signs are normal. She is mildly tender in the lower abdomen. Ultrasound shows no evidence of intrauterine at this time. There is a cyst on the right ovary which could be a corpus luteum cyst, but lacks some of the characteristics of that. Cannot rule out ectopic at this time. The on-call physician for her practice was notified. Patient will follow-up in 3 days for repeat beta hCG and repeat ultrasound. She will follow up here in the emergency room sooner than that if there are any problems. Source of Hx: Old records Re-Evaluation/Progress : Time of Eval: 00:27 Re-Evaluation/Progress Note: Rechecked pt. Discussed US results and need to have a repeat US done in three days to determine diagnosis. Counseled Regarding: Diagnosis, Lab results, Need for follow-up, When/why to return to ED Discharge & Departure Primary Impression: Weeks of gestation: less than 8 weeks Qualified Code: Z3A.01 - Less than 8 weeks gestation of Disposition: Home Discharge Condition All VS Reviewed: Yes Condition: Stable Patient Instructions: Ectopic (ED) Additional Instructions: It is very early in your , so the ultrasound does not clearly show an intrauterine yet. There is an area in the right ovary that could be an early ectopic . Contact Dr. Britton's office first thing in the morning to schedule a follow-up appointment in 2 or 3 days. At that time you will need repeat ultrasound and repeat beta hCG hormone test. Return to the emergency room YONI if you have increasing abdominal pain lightheadedness dizziness or any other problems. Call me at [phone] between the hours of 9 PM and 6 AM for the next couple nights if you have any questions or concerns. Referrals: Anupama Britton MD (PCP) Scribe Attestation Portions of this note were transcribed by Enrico Potts. I, Dr. Bo personally performed the history, physical exam and medical decision-making; I reviewed and confirmed the accuracy of the information in the transcribed note. Signed by : Kendra Green, 09/22/16 and 2129. copies to: Anupama Britton MD, Howard L MD Sep 22, 2016 21:09 Enrico Potts Sep 22, 2016 21:18
[2016-09-22] MEDS ORDERED: Lidocaine 2% 5 mL Topical Jelly TOPICAL ONE (21:25)
[2016-09-23 01:14] VITALS: BP 130/82; PULSE 79; RESP 16; O2SAT 98
--- NOTE | 2016-09-24 14:18 | DRSVH ---
PROCEDURE: US PELVIC SONOGRAM + TRANSVAGINAL SONOGRAM INDICATIONS: right adnexal pain TECHNIQUE: Real-time scanning was performed of the pelvic organs, with image documentation. Additional endovagi nal scanning was necessary due to incomplete visualization of the adnexal and endometrial structures by transabdominal scanning. COMPARISON: Pelvic sonogram 06/29/2016. FINDINGS: (orthogonal measurements) Uterus size: 7.52 cm, 6.52 cm, 4.64 cm Endometrium thickness: 9.40 mm Right ovary size: 2.26 cm, 2.67 cm, 2.74 cm Left ovary size: 1.83 cm, 1.31 cm, 1.38 cm Transabdominal scanning: Limited scanning through the kidneys shows no hydronephrosis. No pathologi c free abdominal or pelvic fluid. Endovaginal scanning: Uterus: Uterus is normal in size and appearance. Endometrium is within normal physiologic limits. Ovaries: The right ovary measures 27 x 27 x 23 mm and contains a complex 10 x 10 x 11 mm cyst with in ternal debris. The ovary appears hypervascular. The left ovary measures 13 x 14 x 18 mm. IMPRESSION: 1. No intrauterine gestation identified. 2. Complex small right ovarian cyst is indeterminant. No free fluid seen. Correlation with serial hCG titers, repeat imaging as clinically indicated Dictated by: Nahum Gross M.D. on 09/24/2016 at 14:11 Approved by: Nahum Gross M.D. on 09/24/2016 at 14:16
== END 2016-09-23 01:15 | disposition home or self-care (01) ==
LOC: SED 18:47
DX: O26.891 Other specified pregnancy related conditions, first trimester (principal); R10.31 Right lower quadrant pain; Z3A.01 Less than 8 weeks gestation of pregnancy